=== PATIENT | female | born 1955 | race Two or more races ===

== ENCOUNTER 2017-03-31 10:28 | Outpatient (CLI) | payer OTHER ==
[~2017-03-31 10:28] MED LIST: BACTROBAN22 GM TP; GILTUSS TR TAB1 EACH PO; INTESTINEX680 MG PO; OSEL75CA PO; SYNTHROID100 MCG; TUSSI-PRES LIQ120 ML PO; ZYRTEC10 MG PO
== END 2017-03-31 10:35 | disposition home or self-care (01) ==
LOC: RAD 10:28
DX: M12.9 Arthropathy, unspecified (principal); M19.90 Unspecified osteoarthritis, unspecified site

== ENCOUNTER 2018-06-02 08:58 | Outpatient (CLI) | payer OTHER | END 2018-06-02 09:02 | disposition home or self-care (01) | LOC: MAMO-SONO 08:58 | DX: Z12.31 Encounter for screening mammogram for malignant neoplasm of breast (principal) ==

== ENCOUNTER → 2018-06-15 | Outpatient (CLI) | payer OTHER | END | disposition home or self-care (01) | LOC: NUCLEAR 06-14 10:00 | DX: M81.0 Age-related osteoporosis without current pathological fracture (principal) ==

== ENCOUNTER 2019-06-15 08:27 | Outpatient (CLI) | payer OTHER | END 2019-06-15 08:39 | disposition home or self-care (01) | LOC: MAMO-SONO 08:27 | DX: Z12.31 Encounter for screening mammogram for malignant neoplasm of breast (principal); Z87.898 Personal history of other specified conditions; N64.4 Mastodynia ==

== ENCOUNTER 2020-06-29 08:19 | Outpatient (CLI) | payer OTHER | END 2020-06-29 08:53 | disposition home or self-care (01) | LOC: MAMO-SONO 08:19 | PROVIDERS: ATTEND Internal Medicine Endocrinology, Diabetes & Metabolism | DX: Z12.31 Encounter for screening mammogram for malignant neoplasm of breast (principal); Z87.898 Personal history of other specified conditions; K64.4 Residual hemorrhoidal skin tags ==

== ENCOUNTER 2020-07-13 13:22 | Outpatient (CLI) | payer OTHER | END 2020-07-13 13:23 | disposition home or self-care (01) | LOC: NUCLEAR 13:22 | PROVIDERS: ATTEND Internal Medicine Endocrinology, Diabetes & Metabolism | DX: M81.0 Age-related osteoporosis without current pathological fracture (principal); E04.9 Nontoxic goiter, unspecified; E55.9 Vitamin D deficiency, unspecified ==

== ENCOUNTER 2022-01-20 07:34 | Outpatient (CLI) | payer OTHER | END 2022-01-20 07:47 | disposition home or self-care (01) | LOC: MAMO-SONO 07:34 | PROVIDERS: ATTEND Internal Medicine Endocrinology, Diabetes & Metabolism | DX: N64.1 Fat necrosis of breast (principal); Z85.3 Personal history of malignant neoplasm of breast ==

== ENCOUNTER 2023-06-01 07:41 | Outpatient (CLI) | payer OTHER | END 2023-06-01 08:01 | disposition home or self-care (01) | LOC: MAMO-SONO 07:41 | PROVIDERS: ATTEND Internal Medicine Endocrinology, Diabetes & Metabolism | DX: N64.1 Fat necrosis of breast (principal); Z12.31 Encounter for screening mammogram for malignant neoplasm of breast ==

== ENCOUNTER 2024-12-29 14:31 | Emergency (ER) | payer OTHER ==
[~2024-12-29] VITALS: Ht 162.6 cm; Wt 65.8 kg
[2024-12-29 16:53] LABS: BASO % 0.8 % (0.1-1.2); EOS # 0.05 (0.04-0.54); EOS % 1.0 % (0.7-7.0); LYMPH # 1.62 (1.18-3.74); LYMPH % 33.1 % (19.3-53.1); MEAN PLATELET VOLUME 9.10 fl (9.4-12.4); MONO # 0.53 (0.24-0.82); MONO % 10.8 % (4.7-12.5); NEUT # 2.65 (1.56-6.13); NEUT % 54.1 % (34.0-71.1); RED CELL DISTRIBUTION WIDTH 14.3 % (11.6-14.4)
[2024-12-29 16:58] LABS: URINE APPEARANCE Clear; URINE BILIRRUBIN Negative (NEGATIVE); URINE BLOOD Negative; URINE COLOR Yellow; URINE GLUCOSE Negative (NEGATIVE); URINE KETONE Negative (NEGATIVE); URINE LEUKOCYTE Moderate; URINE NITRATE Negative; URINE PROTEIN Negative (NEGATIVE); URINE UROBILINOGEN 0.2 E.U./dl
[2024-12-29 17:02] LABS: URINE BACTERIA 289.1 uL (0.0-1933); URINE EPITHELIAL CELLS 20.6 uL (0.0-38.8); URINE RBC 4.3 uL (0.0-20.8)
[2024-12-29 17:24] LABS: COVID-19 AG NEGATIVE (NEGATIVE)
[2024-12-29 17:31] LABS: ALT/SGPT 30.0 U/L (12-78); AST/SGOT 22.0 U/L (15-37); BILIRUBIN TOTAL 0.31 mg/dL (0.3-1.2); BUN CREA RATIO 21.0 (7.0-25.0); CREATININE SERUM 0.86 mg/dL (0.55-1.02); GFR 65.23; GLOBULINA 3.5 G/DL (2.4-3.5); GLUCOSE FASTING 93.0 mg/dL (65-100); OSMOLALITY SERUM 288.0 MOSM/KG (275-295)
[2024-12-29 17:58] LABS: URINE CAST 0.14 uL (0.0-1.40)
[2024-12-29 18:03] LABS: TYPE CELLS SQUAMOUS; URINE MUCUS SCANT
[2024-12-29 18:04] LABS: URINE CRYSTALS FEW /HPF
[2024-12-29 18:05] LABS: URINE WBC 92.9 uL (0.0-23.2)
== END 2024-12-29 18:03 | disposition home or self-care (01) ==
LOC: ER 14:31
PROVIDERS: General Practice
DX: R55 Syncope and collapse (principal); R42 Dizziness and giddiness; Z20.822 Contact with and (suspected) exposure to COVID-19; Z88.8 Allergy status to other drugs, medicaments and biological substances; E03.9 Hypothyroidism, unspecified

== ENCOUNTER 2024-12-30 08:48 | Outpatient (CLI) | payer OTHER | END 2024-12-30 09:05 | disposition home or self-care (01) | LOC: SONOGRAMA 08:48 | PROVIDERS: ATTEND Internal Medicine Endocrinology, Diabetes & Metabolism | DX: C73 Malignant neoplasm of thyroid gland (principal); E78.9 Disorder of lipoprotein metabolism, unspecified; E04.9 Nontoxic goiter, unspecified ==

== ENCOUNTER 2025-01-16 08:45 | Outpatient (CLI) | payer OTHER | END 2025-01-16 08:58 | disposition home or self-care (01) | LOC: NUCLEAR 08:45 | PROVIDERS: ATTEND Internal Medicine Endocrinology, Diabetes & Metabolism | DX: I65.23 Occlusion and stenosis of bilateral carotid arteries (principal); R55 Syncope and collapse ==